=== PATIENT | male | born 1995 | race Caucasian/White ===

== ENCOUNTER 2016-06-16 11:41 | Emergency (ER) | payer SELFPAY ==
--- NOTE | 2016-06-16 12:59 | ED NURSING NOTES ---
Clinical Report - Nurses [facility] [place] [address] 06/16/2016 11:44 Patient: KATHY IRVIN TRIAGE Triage time 11:53. Acuity: LEVEL 4. Chief Complaint: ABDOMINAL PAIN and (Pt states he has abdominal pressure across upper abdominal area, denies nausea/vomiting). Alert. --11:59 Juliana Jaffe R.N. 11:52 06/16/16. BP: 129/50. HR: 79. RR: 18. O2 saturation: 100%. Temp: 98.5 F. Pain level now: 09/05. --11:59 Juliana Jaffe R.N. Weight: 74.8 kg stated. Height/Length: 72 inches Per Patient. BMI: 22.4. Growth Chart Percentile: Weight: 65.6%. Height/Length: 80.2%. --11:53 Juliana Jaffe R.N. Medications None. --11:54 Juliana Jaffe R.N. Allergies No Known Drug Allergy. --11:54 Juliana Jaffe R.N. History Arrived by private vehicle. Historian: patient. Accompanied by friend. Primary physician (none). Onset. (2 days ago). PAST MEDICAL HX: Immunizations: up-to-date. ( asthma). SURGERY HX: ( lower back cyst removed). SOCIAL HX: Never smoker. History of occasional drug use: marijuana. No alcohol use. --11:59 Juliana Jaffe R.N. Interventions ID band on patient. To room. --11:59 Juliana aJffe R.N. PHYSICAL ASSESSMENT 11:59 06/16/16. GENERAL / NEURO / PSYCH: Alert. Oriented X 4. Appears in no acute distress. --11:59 Juliana Jaffe R.N. CVS: ( Pt's father is in the lobby, pt declined having him in the room with him.). --12:14 Juliana Jaffe R.N. NURSING PROGRESS NOTES 11:59 02/18/17. Patient identifiers checked. Call light placed in reach. Bed placed in lowest position. Patient ready for evaluation- chart flagged. --11:59 Juliana Jaffe R.N. 12:18. Production Control Supervisor provided for the general and rectal exam by the physician. --12:28 Juliana Jaffe R.N. 12:35 06/16/2016 GI COCKTAIL WHITE (Simethicone) PO Oral Suspension 45 mL given. Confirmed 5 rights. --12:35 Juliana Jaffe R.N. DISPOSITION / DISCHARGE Departure time: 1329. Condition at departure: improved. No learning barriers present. Discharge instructions provided and reviewed with the patient. Reviewed medication(s) information. Prescription(s) given to the patient. Reviewed referral to family practice for followup. Verbalized understanding. Written instructions provided. The patient was discharged home. He left the Emergency Department ambulatory and via private vehicle. Parent driving. --13:34 Juliana Jaffe R.N. 13:29 06/16/16. BP: 127/57. HR: 71. RR: 18. O2 saturation: 99%. Pain level now: 06/08. --13:34 Juliana Jaffe R.N. Locked/Released at 06/16/2016 13:35 by Juliana Jaffe R.N.
--- NOTE | 2016-06-16 12:59 | ED NURSING NOTES ---
Clinical Report - Nurses [facility] [place] [address] 06/16/2016 11:44 Patient: KATHY IRVIN TRIAGE Triage time 11:53. Acuity: LEVEL 4. Chief Complaint: ABDOMINAL PAIN and (Pt states he has abdominal pressure across upper abdominal area, denies nausea/vomiting). Alert. --11:59 Juliana Jaffe R.N. 11:52 06/16/16. BP: 129/50. HR: 79. RR: 18. O2 saturation: 100%. Temp: 98.5 F. Pain level now: 09/05. --11:59 Juliana Jaffe R.N. Weight: 74.8 kg stated. Height/Length: 72 inches Per Patient. BMI: 22.4. Growth Chart Percentile: Weight: 65.6%. Height/Length: 80.2%. --11:53 Juliana Jaffe R.N. Medications None. --11:54 Juliana Jaffe R.N. Allergies No Known Drug Allergy. --11:54 Juliana Jaffe R.N. History Arrived by private vehicle. Historian: patient. Accompanied by friend. Primary physician (none). Onset. (2 days ago). PAST MEDICAL HX: Immunizations: up-to-date. ( asthma). SURGERY HX: ( lower back cyst removed). SOCIAL HX: Never smoker. History of occasional drug use: marijuana. No alcohol use. --11:59 Juliana Jaffe R.N. Interventions ID band on patient. To room. --11:59 Juliana Jaffe R.N. PHYSICAL ASSESSMENT 11:59 06/16/16. GENERAL / NEURO / PSYCH: Alert. Oriented X 4. Appears in no acute distress. --11:59 Juliana Jaffe R.N. CVS: ( Pt's father is in the lobby, pt declined having him in the room with him.). --12:14 Juliana Jaffe R.N. NURSING PROGRESS NOTES 11:59 02/18/17. Patient identifiers checked. Call light placed in reach. Bed placed in lowest position. Patient ready for evaluation- chart flagged. --11:59 Juliana Jaffe R.N. 12:18. Pulley Man provided for the general and rectal exam by the physician. --12:28 Juliana Jaffe R.N. 12:35 06/16/2016 GI COCKTAIL WHITE (Simethicone) PO Oral Suspension 45 mL given. Confirmed 5 rights. --12:35 Juliana Jaffe R.N. DISPOSITION / DISCHARGE Departure time: 1329. Condition at departure: improved. No learning barriers present. Discharge instructions provided and reviewed with the patient. Reviewed medication(s) information. Prescription(s) given to the patient. Reviewed referral to family practice for followup. Verbalized understanding. Written instructions provided. The patient was discharged home. He left the Emergency Department ambulatory and via private vehicle. Parent driving. --13:34 Juliana Jaffe R.N. 13:29 06/16/16. BP: 127/57. HR: 71. RR: 18. O2 saturation: 99%. Pain level now: 06/08. --13:34 Juliana Jaffe R.N. Locked/Released at 06/16/2016 13:35 by Juliana Jaffe R.N.
--- NOTE | 2016-06-16 12:59 | ED ORDER SUMMARY ---
..... Patient: KATHY IRVIN OrderSheet [facility] VisitID: [id number] [address] [place] [address] 20y, M Registration Date/Time: 06/16/2016 ORDER SHEET Weight: 74.8 kg (stated) Allergies: No Known Drug Allergy GENERAL ORDERS: CBC w Diff Urgent (12:18 06/16/2016 HBivens A.R.N.P.) (Ack 12:20 TBergley) (12:57 TBergley) CMP Urgent (12:06/16/2016 HBivens A.R.N.P.) (Ack 12:20 TBergley) (12:57 TBergley) UA-Culture if indicated Urgent (12:06/16/2016 HBivens A.R.N.P.) (12:19 TBergley) Amylase Urgent (12:06/16/2016 HBivens A.R.N.P.) (Ack 12:20 TBergley) (12:57 TBergley) Lipase Urgent (12:06/16/2016 HBivens A.R.N.P.) (Ack 12:20 TBergley) (12:57 TBergley) MEDICATION ORDERS: GI Cocktail WHITE PO 30 mL with Lidocaine Viscous Mouth/Throat 15 mL, Maalox Plus Oral 15 mL (NOW) (12:18 06/16/2016 HBivens A.R.N.P.) (12:35 LSullivan R.N.) IV FLUIDS: ORDER SHEET NOTES: [Electronically signed by Juliana Jaffe R.N. (13:35 06/16/2016)] [Electronically signed by Beatriz Larios A.R.N.P. (14:00 06/16/2016)] [Electronically locked/signed by Juliana Jaffe R.N. (13:35 06/16/2016)]
--- NOTE | 2016-06-16 12:59 | ED CLINICAL REPORT ---
Clinical Report - Physicians/Mid Levels [facility] [address] [place] [address] 06/16/2016 11:44 Patient: KATHY IRVIN Time Seen: 12:03; initial patient contact, initial documentation, patient care assumed. Arrived- By private vehicle. Historian- patient. HISTORY OF PRESENT ILLNESS Chief Complaint: ABDOMINAL PAIN. This started about 2 days ago and is still present. At its maximum, severity described as moderate. When seen in the E.D., it was almost gone. Modifying factors- worsened by movement, cough and deep breaths. Not relieved by anything. It is described as pressure. No radiation. It is described as located in the right upper quadrant, epigastric area and left upper quadrant and in the upper abdomen. No nausea, loss of appetite, vomiting or diarrhea. No additional abdominal pain. No recent travel. Similar symptoms previously: None. Recent medical care: Not recently seen/assessed. REVIEW OF SYSTEMS No constipation, black stools, hematemesis, difficulty with urination or pain with urination. No urinary frequency, fever, chest pain or difficulty breathing. He has had mildly bloody stools. They have occurred several times and have been associated with bright red blood on the paper and in the bowl. No maroon or black colored stools or tarry stools. has anal intercourse and uses toys anally, no sex lately, only toys, c/o rectal tear and some bleeding, bright red on tissue and in stool. All systems otherwise negative, except as recorded above. PAST HISTORY Negative. SOCIAL HISTORY Never smoker. History of occasional drug use: marijuana. No alcohol use. Is a local resident. FAMILY HISTORY Negative. ADDITIONAL NOTES The nursing notes have been reviewed with agreement regarding the chief complaint, HPI, ROS, PMH and patient medications and allergies. PHYSICAL EXAM Vital Signs: 06/16/2016 11:52 BP: 129/50. HR: 79. RR: 18. O2 saturation: 100%. Temp: 98.5 F. Pain level now: 5/10. Have been reviewed as normal and appear to be correct. Appearance: Alert. Oriented X3. No acute distress. Eyes: Pupils equal, round and reactive to light. Eyes normal inspection. Neck: Normal inspection. Neck supple. CVS: Normal heart rate and rhythm. Heart sounds normal. Pulses normal. Respiratory: No respiratory distress. Breath sounds normal. Chest nontender. Abdomen: Soft and nontender. Bowel sounds normal. No organomegaly. No mass. Femoral pulses equal. Back: Normal inspection. Rectal: Abnormal rectal exam. Rectal exam nontender. (digital exam not performed, small 3mm anal spincter tear, no active bleeding, no s/s of infection, no dc, no swelling). Skin: Skin warm and dry. Normal skin color. No rash. Normal skin turgor. Extremities: Extremities exhibit normal ROM. No lower extremity edema. Neuro: Oriented X 3. No motor deficit. No sensory deficit. LABS, X-RAYS, AND EKG Laboratory Tests: UA-Culture if indicated: (MINI: 06/16/2016 12:09) ( [facility] 06/16/2016 12:31) Final results Test Result Flag Units (Reference) URINE COLOR YELLOW URINE APPEARANCE CLEAR URINE GLUCOSE NEGATIVE (NEGATIVE) URINE BILIRUBIN NEGATIVE (NEGATIVE) URINE KETONE NEGATIVE (NEGATIVE) URINE SPECIFIC GRAVITY 1.015 (1.010-1.030) URINE PH 8.0 (5.0-8.0) URINE PROTEIN NEGATIVE (NEGATIVE) URINE UROBILINOGEN 0.2 EU/dL (0.2-1.0) URINE NITRITE NEGATIVE (NEGATIVE) URINE BLOOD NEGATIVE (NEGATIVE) URINE LEUK ESTERASE NEGATIVE (NEGATIVE) URINE RBC NONE SEEN rbc/hpf (0-1) URINE WBC RARE wbc/hpf (0-1) URINE EPITHELIAL CELLS NONE SEEN EPI/hpf (0-5) URINE BACTERIA NONE SEEN (NONE SEEN) URINE COMMENT CULT NOT INDICATED URINE CULTURES ARE SET-UP BASED ON THE FOLLOWING CRITERIA:POSITIVE NITRITEPOSITIVE LEUKOCYTE ESTERASEGREATER THAN 10 WHITE BLOOD CELLSMODERATE (2+) OR GREATER BACTERIA CBC w Diff: (MINI: 06/16/2016 12:30) ( [facility] 06/16/2016 12:42) Final results Test Result Flag Units (Reference) WHITE BLOOD COUNT 7.2 K/uL (4.5-11.5) RED BLOOD COUNT 5.51 M/uL (4.50-5.90) HEMOGLOBIN 15.2 gm/dL (13.5-17.5) HEMATOCRIT 45.0 % (41.0-53.0) MEAN CELL VOLUME 82 fL (80-100) MEAN CORPUSCULAR HGB 28 pg (26-34) MEAN CORPUSCULAR HGB CONC 34 g/dL (31-37) RED CELL DISTRIBUTION WIDTH 13.3 % (11.6-14.8) PLATELET COUNT 148 L K/uL (150-400) NEUTROPHIL % 68.7 % (50-75) LYMPH % 12.8 L % (25-40) MONO % 14.3 H % (3-14) EOSINOPHIL % 3.8 % (0-4) BASOPHIL % 0.4 % (0-2) CMP: (MINI: 06/16/2016 12:30) ( MsgRcvd 06/16/2016 12:54) Final results Test Result Flag Units (Reference) GLUCOSE 100 mg/dL (70-110) BUN 10 mg/dL (7-18) CREATININE 0.9 mg/dL (0.6-1.3) Estimated GFR >60 mL/min Estimated GFR- >60 mL/min Note: Persistent reduction over 3 months in eGFR<60 mL/min/1.73 m2 defines CKD. Patients with eGFR values>=60 mL/min/1.73 m2 may also have CKD if evidence ofpersistent proteinuria. Additional information may be foundat www.kidney.org. SODIUM 142 mmol/L (136-145) POTASSIUM 4.0 mmol/L (3.5-5.1) CHLORIDE 106 mmol/L (98-107) CARBON DIOXIDE 29 mmol/L (21-32) CALCIUM 8.8 mg/dL (8.5-10.1) TOTAL PROTEIN 7.5 g/dL (6.4-8.2) ALBUMIN 3.9 g/dL (3.3-5.0) BILIRUBIN, TOTAL 0.4 mg/dL (0.0-1.0) ALKALINE PHOSPHATASE 83 U/L (46-116) AST (SGOT) 21 U/L (15-37) ALT (SGPT) 34 U/L (12-78) LIPASE 68 L U/L (73-393) AMYLASE 42 U/L (25-115) . PROGRESS AND PROCEDURES Patient counseled in person regarding the patient's stable condition, test results and diagnosis. 12:57. Differential Diagnosis: I considered gastritis, peptic ulcer disease, gastroesophageal reflux disease, diverticulitis, colon cancer, Crohn's disease, biliary colic, cholecystitis, cholelithiasis, hepatitis, pancreatitis, intraabdominal abscess, hernia, urinary tract infection, ureterolithiasis and viral syndrome as a possible cause of abdominal pain in this patient. This is a partial list of diagnoses considered. Above considerations are based on history, physical exam and laboratory data. Differential diagnosis was discussed with patient. Disposition: Discharged home in good and improved condition (12:58). Condition: good and stable. CLINICAL IMPRESSION Acute right upper quadrant, epigastric and left upper quadrant abdominal pain of undetermined cause. Single superficial laceration. Delayed treatment. (Rectal). No infection or foreign body present. INSTRUCTIONS No sexual contact until symptoms resolve. Warnings: GENERAL WARNINGS: Return or contact your physician immediately if your condition worsens or changes unexpectedly, if not improving as expected, or if other problems arise. SPECIFICALLY, return if you develop pain in the abdomen or pelvis, fever, the inability to keep fluids down, blood in vomitus, blood in diarrhea, fainting or lightheadedness. Prescription Medications: Pepcid 20 mg tablets: Take 1 orally every 12 hours. Dispense thirty (30). No refills. Substitution is permissible. Follow-up: Follow up with your doctor in about two days even if well. Call for an appointment. Summary of care provided to patient. Understanding of the discharge instructions verbalized by patient. (Electronically signed by Beatriz Larios A.R.N.P. 06/16/2016 14:00)
--- NOTE | 2016-06-16 12:59 | ED ORDER SUMMARY ---
..... Patient: KATHY IRVIN OrderSheet [facility] VisitID: [id number] [address] [place] [address] 20y, M Registration Date/Time: 06/16/2016 ORDER SHEET Weight: 74.8 kg (stated) Allergies: No Known Drug Allergy GENERAL ORDERS: CBC w Diff Urgent (12:18 06/16/2016 HBivens A.R.N.P.) (Ack 12:20 TBergley) (12:57 TBergley) CMP Urgent (12:06/16/2016 HBivens A.R.N.P.) (Ack 12:20 TBergley) (12:57 TBergley) UA-Culture if indicated Urgent (12:06/16/2016 HBivens A.R.N.P.) (12:19 TBergley) Amylase Urgent (12:06/16/2016 HBivens A.R.N.P.) (Ack 12:20 TBergley) (12:57 TBergley) Lipase Urgent (12:06/16/2016 HBivens A.R.N.P.) (Ack 12:20 TBergley) (12:57 TBergley) MEDICATION ORDERS: GI Cocktail WHITE PO 30 mL with Lidocaine Viscous Mouth/Throat 15 mL, Maalox Plus Oral 15 mL (NOW) (12:18 06/16/2016 HBivens A.R.N.P.) (12:35 LSullivan R.N.) IV FLUIDS: ORDER SHEET NOTES: [Electronically signed by Juliana Jaffe R.N. (13:35 06/16/2016)] [Electronically signed by Beatriz Larios A.R.N.P. (14:00 06/16/2016)] [Electronically locked/signed by Juliana Jaffe R.N. (13:35 06/16/2016)]
--- NOTE | 2016-06-16 14:00 | ED MED RECONCILIATION SUMMARY ---
Patient: KATHY IRVIN Medication Reconciliation Report [facility] VisitID: [id number] [address] [place] [address] 20y, M Registration Date/Time: 06/16/2016 Weight: 74.8 kg Height/Length: 72 in. BMI: 22.4 ALLERGIES: No Known Drug Allergy The patient's Home Medications are listed below: NONE. The source(s) of the original Home Medication information: Not obtained. The following Medications were given to the patient in the Emergency Department: GI COCKTAIL WHITE [PO] PO 45 mL, administered: 06/16/2016 12:35:00 PM The following Medications were prescribed to the patient: Pepcid 20 mg tablets: Take 1 orally every 12 hours. Dispense thirty (30). No refills. Substitution is permissible. -- Beatriz Larios A.R.N.P.
--- NOTE | 2016-06-16 14:00 | ED MAR SUMMARY ---
..... Medication Administration Record [facility] [address] [place] [address] Patient: KATHY IRVIN Visit ID: [id number] 20y, M Weight: 74.8 kg Height/Length: 72 in BMI: 22.4 ALLERGIES: No Known Drug Allergy Given 12:35 06/16/2016 Juliana Jaffe R.N. Medication Administered: GI COCKTAIL WHITE [PO] (SIMETHICONE), Dose: 45 mL Oral Suspension PO. Medication Ordered: GI Cocktail WHITE PO 30 mL with Lidocaine Viscous Mouth/Throat 15 mL, Maalox Plus Oral 15 mL (NOW).
--- NOTE | 2016-06-16 14:00 | ED MED RECONCILIATION SUMMARY ---
Patient: KATHY IRVIN Medication Reconciliation Report [facility] VisitID: [id number] [address] [place] [address] 20y, M Registration Date/Time: 06/16/2016 Weight: 74.8 kg Height/Length: 72 in. BMI: 22.4 ALLERGIES: No Known Drug Allergy The patient's Home Medications are listed below: NONE. The source(s) of the original Home Medication information: Not obtained. The following Medications were given to the patient in the Emergency Department: GI COCKTAIL WHITE [PO] PO 45 mL, administered: 06/16/2016 12:35:00 PM The following Medications were prescribed to the patient: Pepcid 20 mg tablets: Take 1 orally every 12 hours. Dispense thirty (30). No refills. Substitution is permissible. -- Beatriz Larios A.R.N.P.
--- NOTE | 2016-06-16 14:00 | ED MAR SUMMARY ---
..... Medication Administration Record [facility] [address] [place] [address] Patient: KATHY IRVIN Visit ID: [id number] 20y, M Weight: 74.8 kg Height/Length: 72 in BMI: 22.4 ALLERGIES: No Known Drug Allergy Given 12:35 06/16/2016 Juliana Jaffe R.N. Medication Administered: GI COCKTAIL WHITE [PO] (SIMETHICONE), Dose: 45 mL Oral Suspension PO. Medication Ordered: GI Cocktail WHITE PO 30 mL with Lidocaine Viscous Mouth/Throat 15 mL, Maalox Plus Oral 15 mL (NOW).
--- NOTE | 2016-06-16 14:00 | ED DISCHARGE INSTRUCTIONS ---
Patient: KATHY IRVIN General Instructions [facility] VisitID: [id number] [place] [address] 20y, M Registration Date/Time: 06/16/2016 Acute right upper quadrant, epigastric and left upper quadrant abdominal pain of undetermined cause. Single superficial laceration. Delayed treatment. (Rectal). No infection or foreign body present. INSTRUCTIONS No sexual contact until symptoms resolve. Warnings: GENERAL WARNINGS: Return or contact your physician immediately if your condition worsens or changes unexpectedly, if not improving as expected, or if other problems arise. SPECIFICALLY, return if you develop pain in the abdomen or pelvis, fever, the inability to keep fluids down, blood in vomitus, blood in diarrhea, fainting or lightheadedness. Prescription Medications: Pepcid 20 mg tablets: Take 1 orally every 12 hours. Dispense thirty (30). No refills. Substitution is permissible. Follow-up: Follow up with your doctor in about two days even if well. Call for an appointment. Summary of care provided to patient. Understanding of the discharge instructions verbalized by patient. ADDITIONAL INFORMATION Abdominal Pain,Uncertain Cause [Male] Based on your visit today, the exact cause of your abdominalpain is not clear. Your exam and tests do not indicate a dangerous cause at this time. However, the signs of a serious problem may take more time to appear. Although your evaluation was reassuring today, sometimes early in the course of many conditions, exam and lab tests can appear normal. Therefore, it is important for you to watch for any new symptoms or worsening of your condition. Causes It may not be obvious what caused your symptoms. Pay attention to things that do seem to make your symptoms worse or better and discuss this with your doctor when you follow up. Diagnosis The evaluation of abdominal pain in the emergency department may onlyrequire an exam by the doctor or it may include blood, urine or imaging studies, depending on many factors. Sometimes exams and tests can identify a cause but in many cases, a clear cause is not found. Further testing at follow up visits may help to suggest a clear diagnosis. Home Care Rest as much as possible until your next exam. Try to avoid any medications (unless otherwise directed by your doctor), foods, activities, or other factors that you may have contributed to your symptoms. Try to eat foods that you know that you have tolerated well in the past. Certain diets may be recommended for some conditions that cause abdominal pain. However, since the cause of your symptoms may not be clear, discuss your diet more with your primary care provider or specialist for further recommendations. Eating several small meals per day as opposed to 2 or 3 larger meals may help. Monitor closely for anything that may make your symptoms worse or better. Pay close attention to symptoms below that may indicate worsening of your condition. Follow Up and Precautions See your doctoras instructed or sooneror if your symptoms are not improving.In some cases, you may need more testing. When to Seek Medical Attention Contact your doctor or see medical attention ifany of the following occur: Pain is becoming worse You are unable to take your medications due to excessive vomiting Swelling of the abdomen Fever of 100.4F (38C) or higher, or as directed by your health care provider Blood in vomit or bowel movements (dark red or black color) Jaundice (yellow color of eyes and skin) New onset of weakness, dizziness or fainting New onset of chest, arm, back, neck or jaw pain Laceration (All Closures) Alaceration is a cut through the skin. This will usually require stitches (sutures) or hesham if it is deep. Minor cuts may be treated with a surgical tape closure orskin glue. Home care The following guidelines will help you care for your laceration at home: Extremity, face, or trunk wounds Keep the wound clean and dry. If a bandage was applied and it becomes wet or dirty, replace it. Otherwise, leave it in place for the first 24 hours. If stitches or hesham were used, clean the wound daily. After removing the bandage, wash the area with soap and water. Use a wet cotton swab to loosen and remove any blood or crust that forms. The doctor may prescribe an antibiotic cream or ointment to prevent infection. Do not stop taking this medication until you have finished the prescribed course or the doctor tells you to stop. The doctor may also prescribe medications for pain. Follow the doctors instructions for taking these medications. You may remove the bandage to shower as usual after the first 24 hours, but do not soak the area in water (no swimming) until the stitches or hesham are removed. If surgical tape was used, keep the area clean and dry. If it becomes wet, blot it dry with a towel. If skin glue was used, do not scratch, rub, or pick at the adhesive film. Do not place tape directly over the film. Do not apply liquid, ointment, or creams to the wound while the film is in place. Do not clean the wound with peroxide and do not apply ointments. Avoid activities that cause heavy sweating until the film has fallen off. Protect the wound from prolonged exposure to sunlight or tanning lamps. You may shower as usual but do not soak the wound in water (no baths or swimming). The film will fall off by itself in 510 days. Scalp wounds During the first two days, you may carefully rinse your hair in the shower to remove blood, glass or dirt particles. After two days, you may shower and shampoo your hair normally. Do not soak your scalp in the tub or go swimming until the stitches or hesham have been removed. Talk with your doctor before applying any antibiotic ointment to the wound. Mouth wounds Eat soft foods to reduce pain. If the cut is inside of your mouth, clean by rinsing after each meal and at bedtime with a mixture of equal parts water and hydrogen peroxide (do not swallow!). Or, you can use a cotton swab to directly apply hydrogen peroxide onto the cut. Mouth wounds can be painful when eating. You may use an [id number] local numbing solution for pain relief. If this is not available, you may use any numbing solution for teething babies. You may apply this directly to the sores with a cotton-tip swab or with your finger. Follow-up care Follow up with your health care provider. Most skin wounds heal within ten days. Mouth and facial wounds heal within five days. However, even with proper treatment, a wound infection may sometimes occur. Therefore, you should check the wound daily for signs of infection listed below. Stitches should be removed from the face within five days; stitches and hesham should be removed from other parts of the body within 714 days. If dissolving stitches were used in the mouth, these will fall out or dissolve without the need for removal. If tape closures were used, remove them yourself if they have not fallen off after 7 days. Ifskin glue was used, the film will fall off by itself in 510 days. When to seek medical care Get prompt medical attention if any of these occur: Bleeding not controlled by direct pressure Signs of infection, including increasing pain in the wound, increasing wound redness or swelling, or pus coming from the wound Fever of 100.4F (38C) or higher, or as directed by your health care provider Stitches or hesham come apart or fall out or surgical tape falls off before 7 days Wound edges re-open Famotidine Oral tablet What is this medicine? FAMOTIDINE (fa HERMINIO pepe) is a type of antihistamine that blocks the release of stomach acid. It is used to treat stomach or intestinal ulcers. It can also relieve heartburn from acid reflux. How should I use this medicine? Take this medicine by mouth with a glass of water. Follow the directions on the prescription label. If you only take this medicine once a day, take it at bedtime. Take your doses at regular intervals. Do not take your medicine more often than directed. Talk to your safety patrol officer regarding the use of this medicine in children. Special care may be needed. What side effects may I notice from receiving this medicine? Side effects that you should report to your doctor or health child care development specialist as soon as possible: agitation, nervousness confusion hallucinations skin rash, itching Side effects that usually do not require medical attention (report to your doctor or health child care development specialist if they continue or are bothersome): constipation diarrhea dizziness headache What may interact with this medicine? delavirdine itraconazole ketoconazole What if I miss a dose? If you miss a dose, take it as soon as you can. If it is almost time for your next dose, take only that dose. Do not take double or extra doses. Where should I keep my medicine? Keep out of the reach of children. Store at room temperature between 15 and 30 degrees C (59 and 86 degrees F). Do not freeze. Throw away any unused medicine after the expiration date. What should I tell my health care provider before I take this medicine? They need to know if you have any of these conditions: kidney or liver disease trouble swallowing an unusual or allergic reaction to famotidine, other medicines, foods, dyes, or preservatives or trying to get breast-feeding What should I watch for while using this medicine? Tell your doctor or health child care development specialist if your condition does not start to get better or if it gets worse. Finish the full course of tablets prescribed, even if you feel better. Do not take with aspirin, ibuprofen or other antiinflammatory medicines. These can make your condition worse. Do not smoke cigarettes or drink alcohol. These cause irritation in your stomach and can increase the time it will take for ulcers to heal. If you get black, tarry stools or vomit up what looks like coffee grounds, call your doctor or health child care development specialist at once. You may have a bleeding ulcer. You have been given the following additional information: Abdominal Pain, Unknown Cause, (Male) Laceration, All Famotidine Oral tablet (Electronically signed by Beatriz Larios A.R.N.P. 06/16/2016 14:00)
== END 2016-06-16 13:29 | disposition home or self-care (01) ==
LOC: ED SRH 11:41
DX: R10.11 Right upper quadrant pain (principal); R10.13 Epigastric pain; R10.12 Left upper quadrant pain; S36.63XA Laceration of rectum, initial encounter; X58.XXXA Exposure to other specified factors, initial encounter; Y99.9 Unspecified external cause status; Y92.9 Unspecified place or not applicable; Y93.9 Activity, unspecified
CPT/HCPCS: 90004; 90100; 92235; 92530; 95059